=== PATIENT | female | born 1985 | race Two or more races ===

== ENCOUNTER → 2024-07-06 | Outpatient (CLI) | payer BC, OTHER, SELFPAY ==
[2024-07-06 12:22] LABS: Glucose Estimated Average 100 mg/dL (80-131); Hemoglobin A1C 5.1 % Hgb (4.8-6.0)
== END | disposition home or self-care (01) ==
LOC: COPL 11:15
PROVIDERS: PCP Specialist; Referring Provider Specialist; Visit Provider Specialist
DX: R73.01 Impaired fasting glucose (principal)
CPT/HCPCS: 36415; 83036

== ENCOUNTER → 2024-08-21 | Outpatient (CLI) | payer BC, OTHER, SELFPAY ==
[2024-08-21 18:01] LABS: Follicle Stimulating Hormone 7.26 mIU/mL (See Note); Thyroid Stimulating Hormone 1.55 uIU/mL (0.55-4.78)
[2024-08-27 06:56] LABS: Luteinizing Hormone* 6.6 mIU/mL
== END | disposition home or self-care (01) ==
LOC: COPL 16:59
PROVIDERS: PCP Specialist; Referring Provider Specialist; Visit Provider Specialist
DX: N95.9 Unspecified menopausal and perimenopausal disorder (principal); A60.00 Herpesviral infection of urogenital system, unspecified
CPT/HCPCS: 36415; 83001; 83002; 84443

== ENCOUNTER → 2024-08-24 | Outpatient (CLI) | payer BC, OTHER, SELFPAY ==
[2024-08-24 07:25] LABS: Misc Send Out* See Sep Rpt
== END | disposition home or self-care (01) ==
LOC: COPL 07:04
PROVIDERS: PCP Specialist; Referring Provider Specialist; Visit Provider Specialist
DX: A60.00 Herpesviral infection of urogenital system, unspecified (principal)
CPT/HCPCS: 87529

== ENCOUNTER → 2025-03-02 | Outpatient (CLI) | payer BC, OTHER, SELFPAY ==
--- NOTE | 2025-03-02 10:00 | XR_ITS ---
Examination: MRI left ankle, without contrast Date and time of exam: March 07, 2000 2510 0 4:00 AM INDICATIONS: Injury to the ankle December 2024 with persistent stiffness and pain Technique: Multiple axial sagittal and coronal images of the left have been obtained with the Siemens high-resolution 1.5 Deana MRI scanner. Images obtained include T2-weighted fat-suppressed sagittal sections, TR 3500, TE 46, T2 weighted coronal fat suppressed images, TR 3050, TE 84, T2-weighted transverse fat suppressed images, TR 3260, TE 63, proton density transverse images, TR 4720 TE 46, and T1 weighted coronal images, TR 560, TE 13. Findings: Homogeneous marrow signal distal tibia and distal fibula talus calcaneous cuboid navicular and cuneiforms Intact Achilles tendon Moderate thickening of the plantar fascia Negative for sinus Tarsi syndrome Anterior posterior inferior tibiofibular ligaments intact Moderate sprain posterior talofibular ligament Tendinitis posterior tibial, flexor digitorum and peroneus longus and brevis tendons which are intact however Extensor tendons are intact Dome the talus intact IMPRESSION: No occult fracture bone contusion or marrow edema Significant tendinitis posterior tibial, flexure digitorum, peroneus longus and brevis tendons Moderate sprain posterior talofibular ligament
== END | disposition home or self-care (01) ==
LOC: SMRI 09:31
PROVIDERS: PCP Specialist; Referring Provider Podiatrist; Visit Provider Podiatrist
DX: S93.432A Sprain of tibiofibular ligament of left ankle, initial encounter (principal); X58.XXXA Exposure to other specified factors, initial encounter; M76.822 Posterior tibial tendinitis, left leg
CPT/HCPCS: 73721